=== PATIENT | male | born 1975 | race Caucasian/White ===

== ENCOUNTER 2017-12-28 10:29 | Emergency (ER) | payer SELFPAY ==
--- NOTE | 2017-12-28 10:34 | PDOC ---
History of Present Illness - General Chief Complaint: Injury Stated Complaint: RIGHT ANKLE PAIN Time Seen by Provider: 12/28/17 10:34 History Source: Patient Exam Limitations: No Limitations - History of Present Illness Initial Comments: 12/28/17 10:52 Mr Miller is a 42 yo M with no past medical history He presents to the ER with a complaint of right ankle pain Two nioght ago, he slipped on a stair and everted his ankle She denies direct trauma to the ankle, inversion injury, falls Pain is aching, rated /10, located in the right lateral malleolus (+) swelling Pt has not tried anything to improve his pain Pt is ambulatory but this is painful PMH: denies PSH: denies Meds: denies ALL: NKDA Social: denies drug or tobacco use FH: non contributory ROS: GENERAL/CONSTITUTIONAL: No: fever, chills CARDIOVASCULAR: No: chest pain, lightheadedness, palpitations, syncope RESPIRATORY: No: cough, shortness of breath, wheezing, hemoptysis, stridor. GASTROINTESTINAL: No: nausea, vomiting, diarrhea, abdominal pain GENITOURINARY: No: dysuria, hematuria MUSCULOSKELETAL: Yes: left ankle pain No: back pain, neck pain SKIN: No:bruising NEUROLOGIC: No: headache, vertigo, paresthesias, weakness PE: GENERAL: The patient is in no acute distress. HEAD: Normal with no signs of trauma. EYES: PERRLA, EOMI, sclera anicteric, conjunctiva clear. ENT: Ears normal, nares patent, oropharynx clear without exudates. Moist mucous membranes. NECK: Normal range of motion, supple without lymphadenopathy, JVD, or masses. LUNGS: Breath sounds equal, clear to auscultation bilaterally. HEART:Regular rate and rhythm, normal S1 and S2 without murmur, rub or gallop. ABDOMEN: Soft, nontender, normoactive bowel sounds. No guarding, no rebound. No masses palpable. EXTREMITIES: Normal range of motion NEUROLOGICAL: Cranial nerves II through XII grossly intact. Normal speech. No focal neurological deficits. MUSCULOSKELETAL: No deformities, swelling, ecchymosis of the lower extremities bilaterally. No tenderness to palpation of the DIPs, PIPs, MTPs, phalanges, metatarsals, tarsals, medial malleolus, Achilles, tibia, fibula, knee, hip bilaterally. (+) right lateral malleolus tender to palpation. Full range of motion of the lower extremities intact. Patient able to bear weight. Ambulating with a limp. Dorsalis pedis and posterior tibialis pulses 2+ and equal bilaterally. Capillary refill less than 2 seconds bilaterally. Neurologic: The patient is awake, alert, oriented x3. Gross motor and sensory exam is found to be intact. Sensation of distal lower extremities intact. 5/5 muscle strength of the lower extremities. DTRs, Achilles, patellar 1-2+ and equal bilaterally. SKIN: Warm, Dry, normal turgor, no rashes or lesions noted. Past History - Past Medical History Allergies/Adverse Reactions: Allergies Allergy/AdvReac Type Severity Reaction Status Date / Time No Known Allergies Allergy Verified 12/28/17 10:59 Home Medications: Ambulatory Orders NK [No Known Home Medication] 12/28/17 Medical Decision Making - Medical Decision Making 12/28/17 10:56 Clinical impression: Most likely ankle sprain as x-ray demonstrated no sign of fracture. Patient placed in air case and given NSAIDS for pain, [with crutches and instructions], told to rest it for at least 1 week or until feeling better. TIFFANY Pt directed to follow up with PCP/Referral within 24-48 hours and to go to ED if they develop any new worsening symptoms. Pt expressed understanding and agreement with above stated plan. 12/28/17 10:58 *DC/Admit/Observation/Transfer Diagnosis at time of Disposition: Right ankle sprain Qualifiers: Encounter type: initial encounter Involved ligament of ankle: unspecified ligament Qualified Code(s): S93.401A - Sprain of unspecified ligament of right ankle, initial encounter - Discharge Dispostion Disposition: HOME Condition at time of disposition: Stable Decision to Admit order: No - Referrals Referrals: Ronaldo Jenkins MD [Staff Physician] - Tommie Castillo MD [Staff Physician] - - Patient Instructions Printed Discharge Instructions: DI for Ankle Sprain Additional Instructions: Mr. Miller, Thank you for coming in to the ER today Please continue to take Motrin 600 mg every 8 hours for pain Please ice and elevate your affected leg as well You can wear an kamari wrap or air cast as is comfortable Since you have not seen a primary care physician, please be sure to follow up in the clinic (Dr Castillo) at your earliest convenience If your ankle does not improve, you can follow up with the Orthopedic doctor Return to the ER for any other concerns or complaints - Post Discharge Activity Forms/Work/School Notes: Back to Work
[2017-12-28] MEDS ORDERED: IBUPROFEN 600 MG TABLET (FP) PO ONE (10:55)
[2017-12-28 10:57] VITALS: BP 125/70; PULSE 75; TEMP 98.1; BMI 27.1
== END 2017-12-28 12:05 | disposition home or self-care (01) ==
LOC: FER 10:29
PROC: 2W3QX1Z Immobilization of Right Lower Leg using Splint (ICD-10-PCS; principal; 2017-12-28)
DX: S93.401A Sprain of unspecified ligament of right ankle, initial encounter (principal); X58.XXXA Exposure to other specified factors, initial encounter; Y93.89 Activity, other specified; Y92.9 Unspecified place or not applicable
CPT/HCPCS: 73610-TC-RT-FY; 73630-TC-RT-FY; 99282-25